=== PATIENT | female | born 1985 | race American Indian/Alaskan Native ===

== ENCOUNTER 2019-07-05 19:23 | Emergency (ER) | payer OTHER ==
[2019-07-05 20:42] VITALS: BP 118/86
--- NOTE | 2019-07-05 20:44 | Event Note ---
ED Screening Note ED Screening Note: states that she had had flu sx for 2 days dry cough, rhinorrhea, N, couple episodes vomiting, body aches, subjective fever PMHx none no allergies to meds LNMP: last week will d/c from triage
--- NOTE | 2019-07-05 20:46 | Emergency Department Report ---
- General Chief Complaint: Upper Respiratory Infection Stated Complaint: CHEST PAIN /BODY ACHE Time Seen by Provider: 07/05/19 20:39 Source: patient Mode of arrival: Ambulatory Limitations: No Limitations - History of Present Illness Initial Comments: Patient is a 34-year-old female presents emergency room with complaints of flu symptoms that began 2 days ago. She has associated cough, rhinorrhea, nausea, episodes of vomiting, body aches, subjective fever. She does not report any diarrhea, chest pain, shortness of breath, palpitations, any other symptoms. she denies any past medical history. She denies any allergies medications. She states her LNMP was a week ago. - Related Data Previous Rx's Medication Instructions Recorded Last Taken Type Ondansetron [Zofran Odt] 4 mg PO Q8HR PRN #12 tab.rapdis 07/05/19 Unknown Rx Oseltamivir [Tamiflu] 75 mg PO BID 5 Days #10 cap 07/05/19 Unknown Rx Allergies Allergy/AdvReac Type Severity Reaction Status Date / Time No Known Allergies Allergy Verified 07/05/19 20:41 ED Review of Systems ROS: Stated complaint: CHEST PAIN /BODY ACHE Other details as noted in HPI Comment: All other systems reviewed and negative ED Past Medical Hx - Past Medical History Previous Medical History?: No - Surgical History Past Surgical History?: No - Social History Smoking Status: Current Every Day Smoker Substance Use Type: None - Medications Home Medications: Home Medications Medication Instructions Recorded Confirmed Last Taken Type Ondansetron [Zofran Odt] 4 mg PO Q8HR PRN #12 tab.rapdis 07/05/19 Unknown Rx Oseltamivir [Tamiflu] 75 mg PO BID 5 Days #10 cap 07/05/19 Unknown Rx ED Physical Exam - General Limitations: No Limitations General appearance: alert, in no apparent distress - Head Head exam: Present: atraumatic, normocephalic - Eye Eye exam: Present: normal appearance - ENT ENT exam: Present: normal orophraynx, mucous membranes moist, TM's normal bilaterally, normal external ear exam, other (pale turbinates, clear nasal drainage) - Respiratory Respiratory exam: Present: normal lung sounds bilaterally. Absent: respiratory distress, wheezes, rales, rhonchi, stridor, chest wall tenderness, accessory muscle use, decreased breath sounds, prolonged expiratory - Cardiovascular Cardiovascular Exam: Present: regular rate, normal rhythm, normal heart sounds. Absent: systolic murmur, diastolic murmur, rubs, gallop - Neurological Exam Neurological exam: Present: alert, oriented X3 - Psychiatric Psychiatric exam: Present: normal affect, normal mood - Skin Skin exam: Present: warm, dry, intact ED Course Vital Signs 07/05/19 20:40 Temperature 98.6 F Pulse Rate 91 H Respiratory 18 Rate Blood Pressure 118/86 [Right] O2 Sat by Pulse 99 Oximetry ED Medical Decision Making - Medical Decision Making Patient is a 34-year-old female presents emergency room with complaints of flu symptoms that began 2 days ago. She has associated cough, rhinorrhea, nausea, episodes of vomiting, body aches, subjective fever. She does not report any diarrhea, chest pain, shortness of breath, palpitations, any other symptoms. she denies any past medical history. She denies any allergies medications. She states her LNMP was a week ago. Vitals are normal. Breath sounds are clear bilaterally without wheezing, rales, rhonchi, normal TMs and canals, normal or if there are next. pt has clinical signs and symptoms of influenza. Will treat patient with Tamiflu. pt given prescription for Zofran to take as needed for nausea or vomiting. advised pt to please take medication as prescribed. increase your fluid intake over the next several days. may take tylenol or ibuprofen as needed for a temperature of 100.4 or greater or body aches. get plenty of rest. may drink warm tea, eat warm soup, do warm salt water gargles. follow up with a primary care doctor in the next 2-3 days. return to the emergency room for any new or worsening symptoms . - Differential Diagnosis URI, PNA, Influenza, viral syndrome, sinusitis, otitis, pharyngitis Critical care attestation.: If time is entered above; I have spent that time in minutes in the direct care of this critically ill patient, excluding procedure time. ED Disposition Clinical Impression: Influenza Disposition: DC-01 TO HOME OR SELFCARE Is pt being admited?: No Does the pt Need Aspirin: No Condition: Stable Instructions: Influenza (ED) Additional Instructions: please take medication as prescribed. increase your fluid intake over the next several days. may take tylenol or ibuprofen as needed for a temperature of 100.4 or greater or body aches. get plenty of rest. may drink warm tea, eat warm soup, do warm salt water gargles. follow up with a primary care doctor in the next 2-3 days. return to the emergency room for any new or worsening symptoms . Prescriptions: Oseltamivir [Tamiflu] 75 mg PO BID 5 Days #10 cap Ondansetron [Zofran Odt] 4 mg PO Q8HR PRN #12 tab.rapdis PRN Reason: Nausea And Vomiting Referrals: [facility] [Provider Group] - 2-3 Days Forms: Work/School Release Form(ED) Time of Disposition: 21:22 Print Language: MALTESE
== END 2019-07-05 21:50 | disposition home or self-care (01) ==
LOC: ED 19:23
DX: J11.1 Influenza due to unidentified influenza virus with other respiratory manifestations (principal); F17.200 Nicotine dependence, unspecified, uncomplicated